=== PATIENT | male | born 1965 | race Caucasian/White ===

== ENCOUNTER 2022-09-27 12:34 | Emergency (ER) | payer OTHER, MEDICAID ==
[2022-09-27] MEDS ORDERED: Lidocaine 1% 5 ML VIAL INJECT ONE (13:46)
[2022-09-27 14:24] LABS: CARBON DIOXIDE,CO2 28.9 mmol/L (21.0-32.0); POTASSIUM,K 4.2 mmol/L (3.5-5.1)
[2022-09-27 15:20] VITALS: BP 115/77; PULSE 65
== END 2022-09-27 15:20 | disposition home or self-care (01) ==
LOC: MW.ED 12:34
DX: M70.22 Olecranon bursitis, left elbow (principal)
CPT/HCPCS: 36415; 80048; 85025; 99283

== ENCOUNTER 2023-05-18 21:26 | Observation (INO) | payer OTHER, MEDICARE, MEDICAID ==
[2023-05-18] MEDS ORDERED: Sodium Chloride 0.9% 10 ML Syringe FLUSH PRN ×2 (21:32)
[2023-05-18] MEDS ORDERED: Sodium Chloride 0.9% 1,000 ML IV ONE (21:32)
[2023-05-18] MEDS ORDERED: Diphtheria,Pertussis(Acell),Tetanus Vaccine 0.5 ML Syringe IM ONE (21:32)
[2023-05-18] MEDS ORDERED: Sodium Chloride 0.9% 2.5 ML Syringe FLUSH PRN ×2 (21:32)
[2023-05-18 21:41] LABS: BASOPHILS PERCENT AUTO 0.3 % (0.0-1.5); EOSINOPHILS ABSOLUTE AUTO 0.1 K/uL (0.0-0.7); EOSINOPHILS PERCENT AUTO 2.7 % (0.0-7.0); HEMATOCRIT 38.2 % (38.0-50.0); LYMPHOCYTES ABSOLUTE AUTO 1.6 K/uL (0.6-2.4); LYMPHOCYTES PERCENT AUTO 42.2 % (16.0-40.0); MEAN CORPUSCULAR HEMOGLOBIN 29.1 pg (27.0-32.0); MEAN CORPUSCULAR VOLUME 85.5 fL (80.0-98.0); MONOCYTES ABSOLUTE AUTO 0.3 K/uL (0.0-0.8); MONOCYTES PERCENT AUTO 8.5 % (0.0-15.0); NEUTROPHILS ABSOLUTE AUTO 1.8 K/uL (1.4-5.7); NEUTROPHILS PERCENT AUTO 46.3 % (48.0-80.0); NRBC ABSOLUTE 0 K/uL; PLATELET COUNT,PLT 158 K/uL (150-400); RED BLOOD CELL COUNT 4.47 M/uL (4.50-5.90); WHITE BLOOD CELL COUNT,WBC 3.77 K/uL (4.0-11.0)
[2023-05-18 21:48] LABS: INR 1.14 (0.86-1.11)
[2023-05-18 21:59] LABS: A/G RATIO 0.9 (0.9-1.6); ALBUMIN 2.9 g/dL (3.4-5.0); BILIRUBIN TOTAL 0.2 mg/dL (0.2-1.0); CALCIUM 8.1 mg/dL (8.5-10.1); CARBON DIOXIDE,CO2 29.1 mmol/L (21.0-32.0); CREATININE 0.9 mg/dL (0.8-1.3); EST CRCL DRUG DOSING (CG) 80.61 mL/min; POTASSIUM,K 3.4 mmol/L (3.5-5.1); PROTEIN TOTAL,TP 6.1 g/dL (6.4-8.2)
[2023-05-19] MEDS ORDERED: Cyclobenzaprine 10 MG Tab PO ONE (00:29)
[2023-05-19] MEDS ORDERED: Ketorolac 30 MG/ML SDV IVPUSH ONE (00:29)
[2023-05-19] MEDS ORDERED: Iopamidol 755 MG/ML 500 ML Multipack Bottle IVPUSH ONE (00:39)
[2023-05-19] MEDS ORDERED: Acetaminophen 325 MG Tab PO PRN (05:33)
[2023-05-19] MEDS ORDERED: Sodium Chloride 0.9% 2.5 ML Syringe FLUSH PRN (06:45)
[2023-05-19] MEDS ORDERED: Ibuprofen 400 MG Tab PO PRN (06:45)
[2023-05-19] MEDS ORDERED: Sodium Chloride 0.9% 10 ML Syringe FLUSH PRN (06:45)
[2023-05-19] MEDS ORDERED: Polyethylene Glycol 3350 Powder 17 GM Packet PO PRN (06:45)
[2023-05-19] MEDS ORDERED: Ondansetron 4 MG/2 ML SDV IVPUSH PRN (06:45)
[2023-05-19] MEDS ORDERED: Albuterol/Ipratropium 3.0-0.5 MG/3 ML Neb Soln NEB PRN (06:45)
[2023-05-19] MEDS ORDERED: Sodium Chloride 0.9% 1,000 ML IV SCH (06:45)
[2023-05-19] MEDS ORDERED: Potassium Chloride 20 MEQ Tab.ER PO ONE ×2 (06:49→10:45)
[2023-05-19 07:26] LABS: BASOPHILS PERCENT AUTO 0.2 % (0.0-1.5); EOSINOPHILS ABSOLUTE AUTO 0.1 K/uL (0.0-0.7); EOSINOPHILS PERCENT AUTO 1.9 % (0.0-7.0); HEMATOCRIT 37.7 % (38.0-50.0); HEMOGLOBIN 12.7 g/dL (13.0-17.0); LYMPHOCYTES ABSOLUTE AUTO 1.5 K/uL (0.6-2.4); LYMPHOCYTES PERCENT AUTO 35.8 % (16.0-40.0); MEAN CORPUSCULAR HEMOGLOBIN 28.9 pg (27.0-32.0); MEAN CORPUSCULAR HGB CONC 33.7 g/dL (31.0-37.0); MEAN CORPUSCULAR VOLUME 85.7 fL (80.0-98.0); MONOCYTES ABSOLUTE AUTO 0.3 K/uL (0.0-0.8); MONOCYTES PERCENT AUTO 6.3 % (0.0-15.0); NEUTROPHILS ABSOLUTE AUTO 2.4 K/uL (1.4-5.7); NEUTROPHILS PERCENT AUTO 55.8 % (48.0-80.0); NRBC ABSOLUTE 0 K/uL; PLATELET COUNT,PLT 150 K/uL (150-400); WHITE BLOOD CELL COUNT,WBC 4.27 K/uL (4.0-11.0)
[2023-05-19 07:27] LABS: APPEARANCE,URINE CLEAR; BILIRUBIN,URINE NEGATIVE (NEGATIVE); COLOR,URINE YELLOW; GLUCOSE,URINE NEGATIVE (NEGATIVE); KETONES,URINE NEGATIVE (NEGATIVE); LEUKOCYTE ESTERASE,URINE NEGATIVE (NEGATIVE); NITRITE,URINE NEGATIVE (NEGATIVE); OCCULT BLOOD,URINE NEGATIVE (NEGATIVE); PH,URINE 6.5 (5.0-8.0); PROTEIN,URINE NEGATIVE (NEGATIVE)
[2023-05-19 07:36] LABS: CARBON DIOXIDE,CO2 27.9 mmol/L (21.0-32.0); CREATININE 0.9 mg/dL (0.8-1.3); EST CRCL DRUG DOSING (CG) 82.77 mL/min; MAGNESIUM 1.7 mg/dL (1.8-2.4); POTASSIUM,K 3.1 mmol/L (3.5-5.1)
[2023-05-19] MEDS ORDERED: Potassium Chloride 100 ML IV SCH (07:45)
[2023-05-19 08:11] LABS: BACTERIA,URINE NOT SEEN (NEGATIVE); EPITHELIAL CELLS,URINE RARE (NONE-FEW); RBC,URINE NONE SEEN (0-2/HPF); WBC,URINE NONE SEEN (0-5/HPF)
[2023-05-19] MEDS ORDERED: Potassium Chloride 20 MEQ Tab.ER PO SCH (10:00)
[2023-05-19 12:35] VITALS: BP 127/86; PULSE 58
== END 2023-05-19 12:45 | disposition home or self-care (01) ==
LOC: MW.ED 21:26 → MW.MS 05-19 02:24
PROVIDERS: ADMIT Family Medicine; ATTEND Family Medicine
DX: S00.83XA Contusion of other part of head, initial encounter (principal); R26.81 Unsteadiness on feet; F12.90 Cannabis use, unspecified, uncomplicated; K04.7 Periapical abscess without sinus; K76.89 Other specified diseases of liver; Z79.899 Other long term (current) drug therapy; Z98.1 Arthrodesis status; Z23 Encounter for immunization; V19.9XXA Pedal cyclist (driver) (passenger) injured in unspecified traffic accident, initial encounter
CPT/HCPCS: 36415; 70450; 70486; 71045; 71260; 72125; 72128; 72131; 74177; 80048; 80053; 81001; 82550; 83690; 83735; 85025; 85610; 90471; 90715; 93005; 96374; 97161; 99291; A9270; G0390; J1885; J3480; J3490; J7030; Q9967; 93010; 96375; G0378